=== PATIENT | female | born 1985 | race Caucasian/White ===

== ENCOUNTER → 2016-12-19 | Outpatient (CLI) | payer BC ==
[~2016-12-19] MED LIST: NORCO 7.5-3251 EACH PO; SENNA S TABLET1 TAB PO; ZYRTEC10 M1 PO
--- NOTE | ~2016-12-19 | CT69 ---
[facility] A Service [facility] RADIOLOGY TEXT RESULTS PATIENT: MANDI NDIAYE LOCATION: [facility] : 81 UNIT #: [id number] AGE: [address]: Magdi Wills MD SEX: F ORDER DR: [id number] [facility] [address] [place], [place] [address] [id number] O MR#: [id number] Acc #: [id number] NAME: MANDI NDIAYE : 1985 SEX: F STUDY DATE/TIME: 12/19/2016 13:45 UNIT: [facility] ROOM: STUDY DESCRIPTION: CT Head W Contrast Attending Physician: Magdi Wills M.D. Referring Physician: Magdi Wills M.D. Ordering Physician: Magdi Wills M.D. Primary Care Physician: Carson SnowdenPYuriy MEDICAL IMAGING REPORT This report is preliminary unless electronic signature is present EXAM CT head with contrast dated 12/19/[address] head without contrast dated 03/10/2013 HISTORY Headaches since August 2016. Left side swelling and jaw pain and neck pain for 1 month. It quadrupled in size overnight. Difficulty swallowing and talking today. TECHNIQUE CT of the head was obtained with IV contrast in the axial plane as per the protocol. This CT exam was performed with one or more of the following radiation dose reduction techniques: automatic exposure control, adjustment of mA and/or kV according to patient size, and iterative reconstruction. FINDINGS No enhancing mass, hydrocephalus, mass effect or midline shift is seen. There is mild to moderate mucosal thickening in the left maxillary antrum. The paranasal sinuses and mastoids are unremarkable. IMPRESSION 1. Brain is unremarkable. 2. Mild left maxillary sinus mucosal thickening. Correlate with sinusitis. Dictated by... Zachary Yu M.D. [facility] A Service [facility] RADIOLOGY TEXT RESULTS PATIENT: MANDI NDIAYE LOCATION: [facility] : 81 UNIT #: [id number] AGE: [address]: Magdi Wills MD SEX: F ORDER DR: THIS IS AN ELECTRONICALLY VERIFIED REPORT Zachary Yu M.D. at 12/19/2016 4:58 PM ZHANG/jaswinder TD: 12/19/2016 16:09 JOB #: [id number] MEDICAL IMAGING REPORT Page 1 of 1 COPY
--- NOTE | ~2016-12-19 | CT114 ---
[facility] A Service of [facility] & [facility] RADIOLOGY TEXT RESULTS PATIENT: MANDI NDIAYE LOCATION: [facility] : 81 UNIT #: [id number] AGE: [address]: Magdi Wills MD SEX: F ORDER DR: [id number] [facility] [address] [place], [place] [address] [id number] O MR#: [id number] Acc #: [id number] NAME: MANDI NDIAYE : 1985 SEX: F STUDY DATE/TIME: 12/19/2016 13:45 UNIT: [facility] ROOM: STUDY DESCRIPTION: CT Soft Tissue Neck W Cont Attending Physician: Magdi Wills M.D. Referring Physician: Magdi Wills M.D. Ordering Physician: Magdi Wills M.D. Primary Care Physician: Carson SnowdenPYuriy MEDICAL IMAGING REPORT This report is preliminary unless electronic signature is present EXAM CT neck soft tissue with contrast dated 12/19/2016. COMPARISON None. HISTORY Swelling in the left side of the jaw and neck for 1 month. It quadrupled overnight with difficulty swallowing and talking today. TECHNIQUE CT neck soft tissue was obtained with IV contrast in the axial plane followed by sagittal and coronal reformats. This CT exam was performed with one or more of the following radiation dose reduction techniques: automatic exposure control, adjustment of mA and/or kV according to patient size, and iterative reconstruction. FINDINGS There is soft tissue swelling noted in the left lower jaw extending up to the cheek and has thickening of the platysma in this region with subcutaneous fat stranding. Streak artifact from dental work limits evaluation. There are some other dental caries and dental fillings involving multiple teeth. No periosteal thickening of the mandible is identified. There is a left submandibular space enlarged lymph node measuring 1.7 x 1.2 cm. The left submandibular gland itself is intact. Multiple other smaller lymph nodes are noted in the neck which are of no great clinical significance. The adenoids are enlarged. There is some prominent soft tissue extending from the posterior aspect of the floor of the mouth into bilateral vallecula, particularly in the right. The epiglottis itself is probably within normal limits. The hypopharynx, trachea are within normal limits. The bilateral parotid glands demonstrate diffuse fatty infiltration. Submandibular glands and thyroid STS. [facility] A Service of [facility] & [facility] RADIOLOGY TEXT RESULTS PATIENT: MANDI NDIAYE LOCATION: [facility] : 81 UNIT #: [id number] AGE: [address]: Magdi Wills MD SEX: F ORDER DR: glands are within normal limits. There is a 9 x 7 mm nodule noted immediately lateral to the posterior aspect of the left thyroid lobe. There is a 9 x 8.5 mm soft tissue nodule which is in the posterior and upper aspect of the left thyroid lobe, separate from the left thyroid lobe. Various other spaces of the neck do not demonstrate any significant abnormality including the carotid space, retropharyngeal space, parapharyngeal space and electronic systems technician space. Imaged lung apices are well-aerated. Visualized brain is unremarkable. IMPRESSION 1. There is soft tissue swelling noted in the left lateral aspect of the cheek extending towards the chin. It is particularly noted overlying the left body of the mandible. No well-defined abscess collection is noted in this region. There is some thickening of platysma. It could be related to cellulitis and flight mild or swelling from trauma. Correlate with history. 2. Slightly enlarged left submandibular space lymph node. 3. No obvious bony erosion or irregularity is noted in the adjacent mandible. There is probably caries tooth involving the left first mandibular and molar tooth with a small periapical cyst or abscess associated with 1 of its roots measuring up to 6 mm. 4. There are some other dental caries and dental fillings involving multiple teeth. No periosteal thickening of the mandible is identified. 5. Soft tissue prominence is extending from the posterior aspect of the floor of the mouth into bilateral valleculae, likely lymphoidal hyperplasia based on statistics. Squamous cell carcinoma and other tumors are less likely in this age group without any corroborative significant abnormality. Correlate clinically. 6. Prominent adenoids are noted, probably inflammatory. 7. There is a 9 x 8.5 mm soft tissue nodule noted immediately lateral to the posterior aspect of the upper to mid left thyroid lobe. It is probably a lymph node. A parathyroid lesion like adenoma is less likely, however clinical correlation is suggested. 8. Findings were discussed with Dr. Wills at 03:40 p.m. on 12/19/2016. 1. Dictated by.Arely. Zachary Yu M.D. THIS IS AN ELECTRONICALLY VERIFIED REPORT Zachary Yu M.D. at 12/22/2016 1:41 PM CPR/jaswinder TD: 12/19/2016 17:58 JOB #: [id number] MEDICAL IMAGING REPORT Page 1 of 1 COPY
== END | disposition home or self-care (01) ==
LOC: CCAT 12:18
DX: R51 Headache (principal); M79.89 Other specified soft tissue disorders; R59.9 Enlarged lymph nodes, unspecified; L85.8 Other specified epidermal thickening; E04.1 Nontoxic single thyroid nodule; K02.9 Dental caries, unspecified; J32.0 Chronic maxillary sinusitis
CPT/HCPCS: 70460; 70491; Q9967